=== PATIENT | male | born 1955 | race Caucasian/White ===

== ENCOUNTER 2017-04-17 10:06 | Inpatient (IN) | payer OTHER ==
[2017-04-17] VITALS (8 sets, daily range): BP systolic 101–134; BP diastolic 44–81
[~2017-04-17] VITALS: Ht 175.3 cm; Wt 98.6 kg
[2017-04-17 10:28] LABS: HEMOGLOBIN 16.6 g/dL (14.1-18.0); LYMPH # 0.9 K/mm3 (0.7-4.5); LYMPH % 6.8 % (10-50)
[2017-04-17 10:57] LABS: BUN 28 mg/dL (7-18)
[2017-04-17 11:01] LABS: GFR (ESTIMATED) 41 ML/MIN (>60)
[2017-04-17] MEDS ORDERED: INVOKAMET XR 11 EAC1 PO (11:04)
[2017-04-17] MEDS ORDERED: TOUJEO300 U/ML SC (11:05)
[2017-04-17] MEDS ORDERED: PRAVACHOL40 M1 PO (11:05)
[2017-04-17] MEDS ORDERED: GLIPIZIDE10 MG PO (11:06)
[2017-04-17] MEDS ORDERED: HCTZ/LISINOPRIL1 TA3 PO (11:10)
--- NOTE | 2017-04-17 11:29 | CONSULT NOTE ---
Standard Demographics Patient Demo Date of Consultation: 04/17/17 Referring Provider: Marc Whelan MD Reason for Consultation: STEMI PRIMARY DIAGNOSIS: STEMI Problem list Problem list: STEMI ANGINA PECTORIS HTN HLD DM History of present illness: History of present illness: Pt presented to his PCP's office today thinkng he had pneumonia. He states that when he was couging he had pressure in the center of the chest radiating up to his head. Occurs with cough. Relieves after a few seconds. This is moderate in intensity. Nothing improves symptoms, it resolves on its own. Denies SOB, edema, fever, chills, N/V/D, PND or orthopnea. He states he had been feeling well until these symptoms started a few days ago. Pt denies previous history of CP. No CAD or KS. He states that he is currently free of CP. His PCP sent him to the hospital for an EKG and labs. In outpatient EKG, pt was found to have an inferolateral STEMI on EKG. Pt will be taken directly to the woven label designer for LHC with R radial access. Past Medical History: General: Hypertension Yes CVA No Seizures No TB No COPD No Asthma No Diabetes Yes Angina Yes KS No Hyperlipidemia Yes Urinary No Cancer No Rheumatic H.D. No Ulcers No MRSA No GB Disease No Past Surgical HX: Previous Surgery?Y Allergies Coded Allergies: No Known Allergies (04/17/17) Home medications: Reported Medications Canagliflozin/Metformin HCl (Invokamet XR 150-1,000 MG Tab) 2 TABS PO DAILY INSULIN GLARGINE,HUM.REC.ANLOG (Tojakub Walker) 75 UNITS SC QHS Pravastatin Sodium (Pravachol) 40 MG PO QHS Glipizide 2 TABS PO BID LISINOPRIL/HYDROCHLOROTHIAZIDE (Lisinopril-Hctz 20-12.5 MG Tab) 2 TAB PO DAILY Current Medications: Current Medications Diphenhydramine HCl 50 MG ONCE ONE IV (DC) Fentanyl Citrate 25 MCG Q3MINP PRN IV Fentanyl Citrate 50 MCG Q3MINP PRN IV (UNV) Flumazenil 0.2 MG PRN PRN IV Heparin Sodium (Beef Lung) 5,000 UNITS PRN PRN IV Heparin Sodium/Sodium Chloride 3,000 UNITS PRN PRN IV Lidocaine HCl 20 ML ONCE ONE IJ (DC) Midazolam HCl 1 MG Q3MINP PRN IV Midazolam HCl 1 MG Q3MINP PRN IV Naloxone HCl 0.4 MG [id number] PRN IV Nitroglycerin 800 MCG PRN PRN IV Sodium Chloride 10 ML PRN PRN IV Sodium Chloride 1,000 ML .Q25H IV Ticagrelor 180 MG ONCE ONE PO (DC) Verapamil HCl 5 MG PRN PRN IV Family history Family HX Diabetes Yes CAD No Hypertension Yes Hyperlipidemia Yes TB No Social Hx: Smoking HX Tobacco No Alcohol Alcohol: No Hx of Drug Use Drug Use? No Patien't marital status is (many years) Patient's support system is good Review of systems: Constitutional No: chills, diaphoresis, fever, malaise, weakness, other. Eyes No: blindness, blurred vision, drainage, decreased acuity, foreign body sensation, inflammation, pain, photophobia, previous injury, shadows, tunnel vision, vision change, contact lenses, glasses, other. Ears, Nose, Mouth, Throat No ear pain, No ear discharge, No nose pain, No drooling/excessive saliva, No nose discharge, No nose congestion, No epistaxis, No mouth pain, No mouth swelling, No tongue swelling, No dental caries, No loose teeth, No missing teeth , No throat pain, No throat swelling, No other Respiratory No: cough, orthopnea, shortness of breath, SOB with excertion, SOB at rest, stridor, wheezing, other. Cardiovascular see HPI, chest pain, No edema, No palpitations, No syncope, No other Gastrointestinal/Abdominal No abdomen distended, No abdominal pain, No blood streaked bowels, No constipated, No diarrhea, No difficulty swallowing, No nausea, No poor appetite, No poor fluid intake, No rectal bleeding, No vomiting, No other Genitourinary No: discharge, abnormal vaginal bleeding, normal menstrual period, vaginal discharge, dysuria, frequency, hesitancy, hematuria, dyspareunia, pain, penis pain, pelvic pain, scrotal/testicular pain, hx stds, genital lesions, other, , labia tenderness, penis tenderness, scrotal tenderness. Musculoskeletal No: back pain, gout, joint pain, joint swelling, muscle pain, muscle stiffness, neck pain, other. Skin No: change in color, change in hair/nails, dryness, lesions, lumps, rash, other. Neurological No: headache, numbness, tingling, tremors, weakness, parasthesia, seizure disorder. Psychiatric No: anxious, depressed, other, withdrawn. Exam: Admission Vital Signs: 1ST Vital Signs Result Date Time Resp 04/17 1106 HR 91 BP 131/77 O2 sat 100% Last Vital Signs: Vital Signs Result Date Time Resp 04/17 1106 Exam General appearance: normal appearance, alert, active, awake, face symmetric, no acute distress, well-developed, well-nourished, obese Eyes: normal exam, anicteric, conjunctiva clear, EOM's w/normal ROM, PERRLA, sclera clear ENT: normal exam, mucous membranes moist, nose normal, pharynx normal, teeth/ gums normal, tympanic membranes normal Neck: normal inspection, non-tender, no carotid bruit, no JVD, full range of motion, range of motion, supple Cardiovascular: normal exam, no JVD, no ectopics, normal sinus rhythm, PMI normal, regular rate & rhythm, no murmur, normal peripheral pulses, no peripheral edema, no rub Respiratory: normal exam, aerating well, clear to auscultation, chest non- tender, good air movement, normal breath sounds, no respiratory distress, trachea midline ABD: normal exam, non-distended, normal bowel sounds, no rebound, soft, no tenderness, no guarding, no organomegaly, no palpable mass Extremities: normal exam, full range of motion, moves all, normal capillary refill, no peripheral edema, femoral pulses (present), warm, pedal pulses ( present), no calf tenderness, no pedal edema Musculoskeletal: normal exam, equal muscle strength, motor intact, normal gait, sensation intact Skin: normal exam, dry, intact, normal color, no gross abnormalities, warm Neuro: normal exam, alert, sales representative electric service II-XII nml as tested, intact, no deficit, normal mood/affect, oriented, speech clear Laboratory data: Laboratory Tests 04/17/17 1006: Sodium 135 L, Potassium 4.8, Chloride 97 L, Carbon Dioxide 24, BUN 28 H, Creatinine 1.7 H, Estimated GFR (MDRD) 41, Glucose 403 H, Calcium 9.3, Total Bilirubin 0.8, AST 47 H, ALT 49, Alkaline Phosphatase 68, Creatine Kinase 332 H, CK-MB (CK-2) Rel Index 7.3 H, CK and CKMB Interp 24.1 *H, Troponin I 20.07 H, Total Protein 7.9, Albumin 3.6, Globulin 4.3 H, Albumin/Globulin Ratio 0.8 L, D-Dimer 560 *H, WBC 13.5 H, RBC 5.46, Hgb 16.6, Hct 52.1 H, MCV 95.5, RDW 12.9, Plt Count 246, MPV 9.2, Gran % 84.5 H, Gran # 11.4 H, Lymphocytes % 6.8 L, Monocytes % 7.7, Eosinophils % 0.7, Basophils % 0.3, Lymphocytes # 0.9, Monocytes # 1.1 H, Eosinophils # 0.1, Basophils # 0.0, PUBS MCHC 31.8, MCH 30.4 Additional information: EKG shows inferolateral STEMI with reciporical changes. Plan Assessment: STEMI ANGINA PECTORIS HTN HLD DM MARCIO STEMI SCORE MARCIO STEMI SCORE Response Value Age of patient Less than 65 yrs 0 Hx of anginal chest pain Present 1 Hx of hypertension Present 1 Hx of diabetes Present 1 Systolic Blood Pressure 100 mg Hg or more 0 Heart Rate Less than 100 beats/min 0 Killip Class I-No heart failure 0 Patient weight 67 kg or more 1 Anterior KS No 0 Left Bundle Branch Block Absent 0 Treatment delay after attack 4 hrs or more 1 Total 5 Plan: 1. Pt admitted with STEMI from outpatient EKG. He has been having angina the past few days. CP with coughing and radiating up to his head. Occurs with cough and resolves quickly. moderate in intensity. Pt will be taken directly to the woven label designer for LHC with R radial access. Will get a stat troponin. 2. pt educated on the risks an benefits of LHC with R radial access. Pt verbalizes understanding and gives verbal consent. 3. NPO 4. BP is well controlled. 5. LDL is goal < 55. 6. Pt has diabetes. appears poorly controlled with glucose over 400. pt needs aggressive control. will defer to Dr. Driscoll. 7. Will get an echocardiogram to evaluate LV function. 8. Further recommendations pending the patients response to treatment and the results of his LHC and echocardiogram today. Thank you for the opportunity to help participate in the care of this patient. at [id number]
--- OUTSIDE RECORDS SUMMARY | 2017-04-17 11:34 | External Medical Summary Rpt | CCD ---
Author Author [employer] Organization [employer] Address Unknown Phone Unavailable Purpose Continuity of Care Document - through 2016
--- OUTSIDE RECORDS SUMMARY | 2017-04-17 11:34 | External Medical Summary Rpt | CCD ---
Author Author , ARVIND SAMUELS Address Unknown Phone [email or web address] Purpose Continuity of Care Document - 04-17-2017 through 2016
--- OUTSIDE RECORDS SUMMARY | 2017-04-17 11:34 | External Medical Summary Rpt ---
Author Author BONNYDINESH Brunson, ARVIND [employer] Organization [employer] Address Unknown Phone Unavailable Results Cardiac enzymes Observa Value Referen Units Interpr Notes Date tion ce etation Range Creatine 0 - 4.0 U/L High No Apr 17 kinase.MB informati 2017 /Creatine on in 10:06 AM source kinase.to data david [Ratio] in Serum or Plasma Creatine 0.0 - 3.6 ng/mL High Apr 17 kinase.MB alert 2017 CRITICAL 10:06 AM [Mass/vol RESULTS ume] in Serum or RESU Plasma LTS CALLED TO: 04/17/17 [facility] Tremayne Pena OFFICE SPOKE WITH TOYIN F Creatine 39 - 308 U/L High No Apr 17 kinase informati 2016 [Enzymati on in 10:06 AM c source activity/ data volume] in Serum or Plasma Troponin 0.00 - ng/mL High Apr 17 I.cardiac 0.06 2017 CRITICAL 10:06 AM [Mass/vol RESULTS ume] in Serum or RESU Plasma LTS CALLED TO: 04/17/17 [facility] Tremayne Pena OFFICE SPOKE WITH TOYIN F> 0.5 IS CONSISTEN T WITH MYOCARDIA L ISCHEMIA OR INFARCTIO N Comprehensive metabolic 2000 panel in Serum or Plasma Observa Value Referen Units Interpr Notes Date tion ce etation Range Albumin/G 1.1 - 1.8 No Low No Apr 17 lobulin informati informati 2016 [Mass on in on in 10:06 AM ratio] in source source Serum or data data Plasma Albumin 3.4 - 5.0 gm/dL Normal No Apr 17 [Mass/vol informati 2017 ume] in on in 10:06 AM Serum or source Plasma data Alkaline 46 - 116 U/L Normal No Apr 17 phosphata informati 2017 se on in 10:06 AM [Enzymati source c data activity/ volume] in Serum or Plasma Bilirubin 0.2 - 1.0 mg/dL Normal No Apr 17 .total informati 2016 [Mass/vol on in 10:06 AM ume] in source Serum or data Plasma Urea 7 - 18 mg/dL High No Apr 17 nitrogen informati 2017 [Mass/vol on in 10:06 AM ume] in source Serum or data Plasma Calcium 8.5 - mg/dL Normal No Apr 17 [Mass/vol 10.1 informati 2016 ume] in on in 10:06 AM Serum or source Plasma data Chloride 98 - 107 mmoL/L Low No Apr 17 [Moles/vo informati 2016 lume] in on in 10:06 AM Serum or source Plasma data Carbon 21.0 - mmoL/L Normal No Apr 17 dioxide, 32.0 informati 2017 total on in 10:06 AM [Moles/vo source lume] in data Serum or Plasma Creatinin 0.70 - mg/dL High No Apr 17 e 1.30 informati 2016 [Mass/vol on in 10:06 AM ume] in source Serum or data Plasma Estimated >60 ML/MIN No REFERENCE Apr 17 informati RANGE: 2017 glomerula on in >60 10:06 AM r source ML/MIN/1. filtratio data 73 SQUARE n rate METERSIf (GF this patient is -A merican, then multiply theresult by 1.210. Globulin 1.3 - 3.2 gm/dL High No Apr 17 [Mass/vol informati 2016 ume] in on in 10:06 AM Serum source data Glucose 74 - 106 mg/dL High Apr 17 [Mass/vol 2016 ume] in CRITICAL 10:06 AM Serum or RESULTS Plasma RESU LTS CALLED TO: 04/17/[address] OFFICE SPOKE WITH TOYIN Singh Potassium 3.5 - 5.1 mmoL/L Normal No Apr 17 informati 2016 [Moles/vo on in 10:06 AM lume] in source Serum or data Plasma Sodium 136 - 145 mmoL/L Low No Apr 17 [Moles/vo informati 2016 lume] in on in 10:06 AM Serum or source Plasma data Aspartate 15 - 37 U/L High No Apr 172016 aminotran on in 10:06 AM sferase source [Enzymati data c activity/ volume] in Serum or Plasma Alanine 12 - 78 U/L Normal No Apr 17 aminotran inform2016 sferase on in 10:06 AM [Enzymati source c data activity/ volume] in Serum or Plasma Protein 6.4 - 8.2 gm/dL Normal No Apr 17 [Mass/vol informati 2017 ume] in on in 10:06 AM Serum or source Plasma data Fibrin D-dimer FEU [Mass/volume] in Platelet poor plasma Observa Value Referen Units Interpr Notes Date tion ce etation Range Fibrin 0 - 400 ng/mL High Apr 17 D-dimer alert NOTIFICAT 2017 FEU ION 10:06 AM [Mass/vol RESULT ume] in The Platelet D-Dimer poor values plasma are presented in units of mass(ng/m L) ofD-Dimer units(DDU ).This test has been FDA approved as an aid in the assessmen tand evaluatio n of suspected DIC, and thromboem bolic eventsinc luding PE and DVT. However, it does not have approvalf or cut-off values for the exclusion of these condition s. CBC W Auto Differential panel in Blood Observa Value Referen Units Interpr Notes Date ti ce etation Range Basophils 0 - 0.2 K/MM3 Normal No Apr 172016 [#/volume on in 10:06 AM ] in source Blood by data Automated count Basophils 0.1 - 2.0 % Normal No Apr 172016 leukocyte on in 10:06 AM s in source Blood by data Automated count Eosinophi 0.0 - 0.4 K/mm3 Normal No Apr 17 ls 2016 [#/volume on in 10:06 AM ] in source Blood by data Automated count Eosinophi 0.1 - % Normal Apr 17 ls/100 12.0 2016 leukocyte on in 10:06 AM s in source Blood by data Automated count Granulocy 1.3 - 8.0 K/mm3 High No Apr 17 sunny 2016 [#/volume on in 10:06 AM ] in source Blood by data Automated count Granulocy 37.0 - % High No Apr 17 snuny/100 80.0 2016 leukocyte on in 10:06 AM s in source Blood by data Automated count Hematocri 42.0 - % High Apr 17 t [Volume 52.0 ati 2016 on in 10:06 AM Fraction] source of Blood data Hemoglobi 14.1 - g/dL Normal Apr 17 n 18.0 inform2016 [Mass/vol on in 10:06 AM ume] in source Blood data Lymphocyt 0.7 - 4.5 K/mm3 Normal No Apr 17 es 2016 [#/volume on in 10:06 AM ] in source Unspecifi data ed specimen by Automated count Lymphocyt 10 - 50 % Low No Apr 17 es 2016 [#/volume on in 10:06 AM ] in source Unspecifi data ed specimen by Automated count Erythrocy 27 - 31.2 pg Normal Apr 17 te mean 2016 corpuscul on in 10:06 AM ar source hemoglobi data n [Entitic mass] Erythrocy 31.8 - g/dl Normal Apr 17 te mean 35.4 2016 corpuscul on in 10:06 AM ar source hemoglobi data n concentra tion [Mass/vol ume] by Automated count Erythrocy 82.2 - fl Normal Apr 17 te mean 97.8 2016 corpuscul on in 10:06 AM ar volume source [Entitic data volume] by Automated count Monocytes 0.1 - 1.0 K/mm3 High Apr 172016 [#/volume on in 10:06 AM ] in source Blood by data Automated count Monocytes 1.7 - 9.3 % Normal No Apr 17 /100 2016 leukocyte on in 10:06 AM s in source Blood by data Automated count Platelet 7.4 - fl Normal Apr 17 mean 10.4 2016 volume on in 10:06 AM [Entitic source volume] data in Blood by Automated count Platelets 142 - 424 K/mm3 Normal Apr 172016 [#/volume on in 10:06 AM ] in source Blood data Erythrocy 4.6 - 6.2 M/mm3 Normal No Apr 17 sunny 2016 [#/volume on in 10:06 AM ] in source Amniotic data fluid Erythrocy 11.5 - % Normal Apr 17 te 17.5 2016 distribut on in 10:06 AM ion width source [Entitic data volume] by Automated count Leukocyte 4.8 - K/MM3 High No Mar 21 s 10.8 informati 2017 [#/volume on in 10:06 AM ] in source Blood data
--- OUTSIDE RECORDS SUMMARY | 2017-04-17 11:34 | External Medical Summary Rpt ---
Author Author BONNYDINESH Brunson, ARVIND [employer] Organization [employer] Address Unknown Phone Unavailable [...] or RESU Plasma LTS CALLED TO: 04/17/[address] [facility] Tremayne Pena OFFICE SPOKE WITH TOYIN F Creatine 39 - 308 U/L High No Apr 17 kinase informati 2016 [Enzymati on in 10:06 AM c source activity/ data volume] in Serum or Plasma Troponin 0.00 - ng/mL High Apr 17 I.cardiac 0.06 2017 CRITICAL 10:06 AM [Mass/vol RESULTS ume] in Serum or RESU Plasma LTS CALLED TO: 04/17/[address] [facility] Tremayne Pena OFFICE SPOKE WITH TOYIN F> [...] 37.0 - % High No Apr 17 sunny/100 80.0 2016 leukocyte on in 10:06 AM [...]
--- OUTSIDE RECORDS SUMMARY | 2017-04-17 11:34 | External Medical Summary Rpt | CCD ---
Demographics Preferred Language Liberian Marital Status Unknown Taoist Affiliation Unknown Race Unknown Ethnic Group Unknown Author Author , ARVIND SAMUELS Address Unknown Phone Immunization No patient found.
--- OUTSIDE RECORDS SUMMARY | 2017-04-17 11:34 | External Medical Summary Rpt | CCD ---
Demographics Preferred Language Cambodian Marital Status Unknown Hoahaoism Affiliation Unknown Race Unknown Ethnic Group Unknown Author Author , ARVIND SAMUELS Address Unknown Phone Immunization No patient found.
--- OUTSIDE RECORDS SUMMARY | 2017-04-17 11:34 | External Medical Summary Rpt | CCD ---
Author Author , ARVIND SAMUELS Address Unknown Phone [email or web address] Purpose Continuity of Care Document - 04-17-2017 through 2016
--- NOTE | 2017-04-17 15:54 | HISTORY AND PHYSICAL REPORT ---
History and Physical ([facility]) Date of admission: 04/17/17 Chief complaint: chest pain History: History of Present Illness: Mr Ye is a 61 year old male with a history of Type 2 DM, hyperlipidemia, and HTN who presented to the office of [facility] today thinkng he had the flu, a cold or pneumonia. He stated that when he was couging he had pressure in the center of the chest radiating up to his head which occured with cough and was relieved after a few seconds. This was moderate in intensity. Nothing improved symptoms and it resolved on its own. He denied SOB, edema, fever, chills, N/V/D, PND or orthopnea. He stated he had been feeling well until these symptoms started a few days ago. Pt denied previous history of CP; No CAD or ME. He was free of CP. Dr. Whelan assessed him in the office and sent him to the hospital for an EKG and labs. Outpatient EKG revealed an inferolateral STEMI . Pt was taken directly to the cardiac cath lab radiology technologist for LHC with R radial access and had stents placed. At the time of this exam patient is back in his room after stent placement. Report not available as yet. He is comfortable and denies SOB. Family is at bedside. Past Medical History: Medical History: CAD? Yes Angina: Yes ME: Yes Hypertension? Yes Hyperlipidemia? Yes CHF? No COPD? No Asthma? No Hernia? No CVA? No Seizures? No Diabetes? Yes UTI? No Stones? Yes BPH? No GB Disease: No Hepatitis? No Cataracts? No Glaucoma? No MRSA? No TB? No Cancer? No Additional hx: hyperlipidemia Surgical history: Previous Surgery? Right knee surgery at 2004 Medications: Reported Medications Canagliflozin/Metformin HCl (Invokamet XR 150-1,000 MG Tab) 2 TABS PO DAILY INSULIN GLARGINE,HUM.REC.ANLOG (Toujeo Solostar) 75 UNITS SC QHS Pravastatin Sodium (Pravachol) 40 MG PO QHS Glipizide 2 TABS PO BID LISINOPRIL/HYDROCHLOROTHIAZIDE (Lisinopril-Hctz 20-12.5 MG Tab) 2 TAB PO DAILY Allergies: Coded Allergies: No Known Allergies (04/17/17) Family History: Family history: Postive for: DM, HTN, cancer. Negative for: CAD. Social History: Smoking Hx Tobacco: No Smoker: Never Smoker Type: N/A Packs/day: N/A Are you exposed to second hand No Alcohol: Alcohol: No Hx of Drug Use: Drug Use? No Patient's support system is: good Review of Systems: ENT No: sore throat. Cardiovascular Positive for: chest pain. No: edema, palpitations. Respiratory Positive for: non-productive. No: shortness of air. GI No: GERD, abdominal pain, constipation, diarrhea, hematemeis, hematochezia, nausea, vomitting. (male) No: hematuria. Neurological No: dizziness, headache, seizure, syncope. Musculoskeletal No: extremity pain, joint pain. Physical Exam: Vital signs: Vital Signs Date Time Temp Pulse Resp B/P Pulse O2 O2 Flow FiO2 Ox Delivery Rate 04/17 1451 80 18 04/17 1450 98.1 80 18 95 ROOM AIR 04/17 1448 97.6 81 22 101/44 98 ROOM AIR 04/17 1342 81 18 99/67 95 ROOM AIR 04/17 1342 84 18 97/72 94 ROOM AIR 04/17 1341 86 18 92/66 95 ROOM AIR 04/17 1341 93 18 90/68 95 ROOM AIR 04/17 1340 90 18 89/46 97 ROOM AIR 04/17 1339 94 18 97 ROOM AIR 04/17 1338 98.1 94 18 96/70 94 ROOM AIR 04/17 1334 98.1 94 18 96/70 94 04/17 1224 18 04/17 1219 18 04/17 1203 18 04/17 1122 18 04/17 1106 18 1ST Vital Signs Result Date Time Resp 18 04/17 1106 Pulse Ox 94 04/17 1334 B/P 96/70 04/17 1334 Temp 98.1 04/17 1334 Pulse 94 04/17 1334 O2 Delivery ROOM AIR 04/17 1338 Exam: General appearance: alert, active, no acute distress Eyes: anicteric Neck: no carotid bruit, supple, lymphadenopathy (absent), thyroid (normal) Cardiovascular: regular rate & rhythm Respiratory: clear to auscultation (bilat anterior and posterior) ABD: soft, no tenderness, no guarding, bowel sounds present Extremities: full range of motion, no peripheral edema, no calf tenderness Neuro: alert, oriented, speech clear Lab data: Labs: Laboratory Tests 04/17/17 1429: POC Glucose 391 *H 04/17/17 1330: POC Activ Clotting Time 327 *H 04/17/17 1254: POC Activ Clotting Time >400 *H 04/17/17 1006: Sodium 135 L, Potassium 4.8, Chloride 97 L, Carbon Dioxide 24, BUN 28 H, Creatinine 1.7 H, Estimated GFR (MDRD) 41, Glucose 403 H, Calcium 9.3, Total Bilirubin 0.8, AST 47 H, ALT 49, Alkaline Phosphatase 68, Creatine Kinase 332 H, CK-MB (CK-2) Rel Index 7.3 H, CK and CKMB Interp 24.1 *H, Troponin I 20.07 H, Total Protein 7.9, Albumin 3.6, Globulin 4.3 H, Albumin/Globulin Ratio 0.8 L, D-Dimer 560 *H, WBC 13.5 H, RBC 5.46, Hgb 16.6, Hct 52.1 H, MCV 95.5, RDW 12.9, Plt Count 246, MPV 9.2, Gran % 84.5 H, Gran # 11.4 H, Lymphocytes % 6.8 L, Monocytes % 7.7, Eosinophils % 0.7, Basophils % 0.3, Lymphocytes # 0.9, Monocytes # 1.1 H, Eosinophils # 0.1, Basophils # 0.0, PUBS MCHC 31.8, MCH 30.4 Radiology results: Results: pending Diagnosis(es): 1. STEMI (ST elevation myocardial infarction) 2. Type 2 diabetes mellitus 3. HYPERLIPIDEMIA, UNSPECIFIED 4. HTN (hypertension) Plan: as per cardiology; see orders (Candace De Souza APRN) Diagnosis(es): 1. STEMI (ST elevation myocardial infarction) 2. Type 2 diabetes mellitus 3. HYPERLIPIDEMIA, UNSPECIFIED 4. HTN (hypertension) Plan: Patient seen and agree with above note. (Marc Whelan MD) at 1619 at 1810
--- NOTE | 2017-04-17 22:37 | RADIOLOGY REPORT PS360 ---
PROCEDURE: 2-D M-mode and color Doppler study INDICATIONS FOR THE TEST: Chest pain X COPD Heart Murmur Tobacco Smoking Palpitations Fatigue Syncope Edema HypertensionXDiabetes MellitusX Rheumatic Fever SOBXDOE ObesityXHyperlipidemia Family History HD Additional History STEMI PATIENT INFORMATION HEIGHT: 69 WEIGHT:217 GENDER: Male B/P: 2-D/M-MODE INTERPRETATION: 2-D MEASUREMENTS OBSERVED VALUES IN CMS Right Ventricular Dimension (RVDd) 1.3 Interventricular Septum (Thickness)(IVsd) 1.7 Left Ventricular Internal Dimensions(LVIDd) 3.5 Left Ventricular Posterior Wall (Thickness)(LVPWd) 1.8 Aortic Root 2.9 Aortic Cusp Separation 2.2 Left Atrial Dimensions (LAD) 3.2 2D 1. Technically difficult study because of the patient's factor and poor acoustic windows 2. The left atrium is mildly enlarged, left ventricle is normal size, there is mild concentric left ventricular hypertrophy, there is severely reduced left ventricular systolic function, visually estimated ejection fraction 30%, there is marked hypo to akinesis involving the inferolateral, lateral and anterolateral wall. 3. The right atrium and right ventricle are normal size and contractility. 4. The aortic valve is minimally thickened and fibrosed. 5. The mitral and tricuspid valve leaflets are minimally thickened. 6. There is localized [id number] size left-sided pericardial effusion noted. DOPPLER INTERROGATION: Doppler interrogation of the aortic, mitral and tricuspid valvular presence of mild mitral and tricuspid regurgitation, diastolic parameters are inconclusive. Tricuspid regurgitant jet velocity is insufficient for calculation of the right ventricular systolic pressure. CONCLUSION: 1. Mildly enlarged left atrium, normal left ventricular size, mild concentric left ventricular hypertrophy, visually estimated ejection fraction 30% with multiple segmental wall motion abnormality described above. Diastolic parameters are inconclusive. 2. Mild mitral and tricuspid regurgitation. 3. Localized pericardial effusion is present as described above.
[2017-04-18] VITALS (16 sets, daily range): BP systolic 99–128; BP diastolic 60–87
[2017-04-18 05:39] LABS: LYMPH # 1.5 K/mm3 (0.7-4.5); LYMPH % 10.8 % (10-50)
[2017-04-18 05:42] LABS: HEMOGLOBIN 13.5 g/dL (14.1-18.0)
[2017-04-18 05:51] LABS: BILIRUBIN, INDIRECT 0.41 mg/dL (0-0.9)
--- NOTE | 2017-04-18 07:18 | PHARMACY CLINIC NOTE ---
Patient Demographics Patient Demographics Admission date: 04/17/17 Date: 04/18/17 Time: 0717 Allergies Coded Allergies: No Known Allergies (04/17/17) HEIGHT- FT: 5 IN: 9.00 K.754 VTE General Information Labs: Laboratory Tests 04/18 04/17 0525 1006 Hematology Hgb (14.1 - 18.0 g/dL) 13.5 L 16.6 Hct (42.0 - 52.0 %) 41.7 L 52.1 H Plt Count (142 - 424 K/mm3) 223 246 Disclaimer The following section includes nursing documentation that has been pulled in for pharmacy review. Patient's VTE score: 3 Patient's VTE Risk: LOW RISK Clinical trial participant? No VTE prophylaxis [id number] VTE prophylaxis ordered? Yes Type of prophylaxis/treatment: CHANELLE at 0717
--- NOTE | 2017-04-18 08:08 | ACUTE CARE PROGRESS NOTE (QUA) ---
Progress Notes Subjective Date 04/18/17 Time 0755 Note no further CP or SOB; did not sleep; blood was drawn q2h making sleep difficult; voiding; eating without problems; has a headache; still on Nitro gtt Had cardiac cath yesterday; report not available as yet but had several stents placed; needs additional stents allowing renal function rest. Objective Findings Laboratory Tests 04/18/17 0609: POC Glucose 187 H 04/18/17 0525: Sodium 134 L, Potassium 4.4, Chloride 101, Carbon Dioxide 26, BUN 34 H, Creatinine 1.3, Estimated Creat Clear 82, Estimated GFR (MDRD) 56, Glucose 174 H, Calcium 8.7, Total Bilirubin 0.6, Direct Bilirubin 0.19, Indirect Bilirubin 0.41, AST 71 H, ALT 41, Alkaline Phosphatase 53, Total Protein 6.6, Albumin 2.8 L, Triglycerides 59, Cholesterol 140, LDL Cholesterol 84.2, VLDL Cholesterol 11.8, HDL Cholesterol 44.0, WBC 13.5 H, RBC 4.51 L, Hgb 13.5 L, Hct 41.7 L, MCV 92.5, RDW 13.0, Plt Count 223, MPV 9.4, Gran % 79.3, Gran # 10.7 H, Lymphocytes % 10.8, Monocytes % 9.2, Eosinophils % 0.4, Basophils % 0.2, Lymphocytes # 1.5, Monocytes # 1.2 H, Eosinophils # 0.1, Basophils # 0.0, PUBS MCHC 32.2, MCH 29.8 04/17/17 2150: Creatine Kinase 462 H, CK-MB (CK-2) Rel Index 8.8 *H, CK and CKMB Interp 40.8 * H, Troponin I 25.02 H 04/17/17 1958: POC Glucose 369 *H 04/17/17 1922: Creatine Kinase 414 H, CK-MB (CK-2) Rel Index 10.6 *H, CK and CKMB Interp 43.7 *H, Troponin I 21.30 H 04/17/17 1429: POC Glucose 391 *H 04/17/17 1330: POC Activ Clotting Time 327 *H 04/17/17 1254: POC Activ Clotting Time >400 *H 04/17/17 1006: Sodium 135 L, Potassium 4.8, Chloride 97 L, Carbon Dioxide 24, BUN 28 H, Creatinine 1.7 H, Estimated GFR (MDRD) 41, Glucose 403 H, Calcium 9.3, Total Bilirubin 0.8, AST 47 H, ALT 49, Alkaline Phosphatase 68, Creatine Kinase 332 H, CK-MB (CK-2) Rel Index 7.3 H, CK and CKMB Interp 24.1 *H, Troponin I 20.07 H, Total Protein 7.9, Albumin 3.6, Globulin 4.3 H, Albumin/Globulin Ratio 0.8 L, D-Dimer 560 *H, WBC 13.5 H, RBC 5.46, Hgb 16.6, Hct 52.1 H, MCV 95.5, RDW 12.9, Plt Count 246, MPV 9.2, Gran % 84.5 H, Gran # 11.4 H, Lymphocytes % 6.8 L, Monocytes % 7.7, Eosinophils % 0.7, Basophils % 0.3, Lymphocytes # 0.9, Monocytes # 1.1 H, Eosinophils # 0.1, Basophils # 0.0, PUBS MCHC 31.8, MCH 30.4 Vital Signs Date Time Temp Pulse Resp B/P Pulse O2 O2 Flow FiO2 Ox Delivery Rate 04/18 0600 81 117/77 93 ROOM AIR 04/18 0359 97.9 89 18 104/65 92 04/18 0200 89 99/78 92 ROOM AIR 04/18 0000 91 101/65 93 ROOM AIR 04/17 2200 94 103/71 94 ROOM AIR 04/17 2000 97.5 100 18 116/76 94 04/17 1750 99 18 134/81 96 04/17 1650 90 18 110/77 94 04/17 1550 97.1 91 18 104/77 95 04/17 1520 85 18 109/79 97 04/17 1451 80 18 91/67 04/17 1450 98.1 86 18 101/44 97 04/17 1450 98.1 80 18 91/67 95 ROOM AIR 04/17 1448 97.6 81 22 101/44 98 ROOM AIR 04/17 1342 81 18 99/67 95 ROOM AIR 04/17 1342 84 18 97/72 94 ROOM AIR 04/17 1341 86 18 92/66 95 ROOM AIR 04/17 1341 93 18 90/68 95 ROOM AIR 04/17 1340 90 18 89/46 97 ROOM AIR 04/17 1339 94 18 97 ROOM AIR 04/17 1338 98.1 94 18 96/70 94 ROOM AIR 04/17 1334 98.1 94 18 96/70 94 04/17 1224 18 04/17 1219 18 04/17 1203 18 04/17 1122 18 04/17 1106 18 Current Medications Aspirin 81 MG DAILY PO Ticagrelor 90 MG BID PO Insulin Human [rDNA origin] 0 .STK-MED ONE SC (DC) Acetaminophen 0 .STK-MED ONE PO (DC) Atorvastatin Calcium 80 MG QHS PO Insulin Glargine 60 UNITS QHS SC Acetaminophen 0 .STK-MED ONE PO (DC) Hydrocodone Bitart/Acetaminophen 0 .STK-MED ONE PO (DC) Temazepam 0 .STK-MED ONE PO (DC) Insulin Human [rDNA origin] 0 .STK-MED ONE SC (DC) Sodium Chloride 1,000 ML .[id number] IV Diagnostic Test (Pha) 1 EACH W/MEALS&HS FS Insulin Human [rDNA origin] SEE ADMIN CRITERIA W/MEALS&HS SC Iopamidol 150 ML ONCE ONE IV (DC) Iopamidol 50 ML ONCE ONE IV (DC) Acetaminophen 650 MG Q4HP PRN PO Influenza Virus Vaccine Quadrival 0.5 ML PRN PRN IM Nicotine 21 MG DAILYP PRN TD Ondansetron HCl 4 MG Q6HP PRN IV Sodium Chloride 10 ML PRN PRN IV Diphenhydramine HCl 50 MG ONCE ONE IV (DC) Fentanyl Citrate 25 MCG Q3MINP PRN IV (DC) Fentanyl Citrate 50 MCG Q3MINP PRN IV (DC) Flumazenil 0.2 MG PRN PRN IV (DC) Heparin Sodium (Beef Lung) 5,000 UNITS PRN PRN IV Heparin Sodium/Sodium Chloride 3,000 UNITS PRN PRN IV Lidocaine HCl 20 ML ONCE ONE IJ (DC) Midazolam HCl 1 MG Q3MINP PRN IV (DC) Midazolam HCl 1 MG Q3MINP PRN IV (DC) Naloxone HCl 0.4 MG [id number] PRN IV (DC) Nitroglycerin 800 MCG PRN PRN IV Sodium Chloride 10 ML PRN PRN IV (DC) Sodium Chloride 1,000 ML .Q25H IV (DC) Ticagrelor 180 MG ONCE ONE PO (DC) Verapamil HCl 5 MG PRN PRN IV 04/17 1500 04/17 2300 04/18 0700 Intake Total 1500 240 730 Output Total Balance 1500 240 730 Intake, IV 1500 730 Intake, Oral 240 Patient 220 lb 222 lb Weight Last VS-Temp:97.9 B/P:117/77 Pulse:81 Resp:18 SaO2:93 ROOM AIR Last weight lbs:222 oz:2 K.754 Method:Bed Scales ECHO 04/17/17 CONCLUSION: 1. Mildly enlarged left atrium, normal left ventricular size, mild concentric left ventricular hypertrophy, visually estimated ejection fraction 30% with multiple segmental wall motion abnormality described above. Diastolic parameters are inconclusive. 2. Mild mitral and tricuspid regurgitation. 3. Localized pericardial effusion is present as described above. Exam General appearance: alert, no acute distress Cardiovascular: regular rate & rhythm Respiratory: clear to auscultation (bilat anterior and posterior) ABD: soft, no tenderness, bowel sounds present Extremities: no peripheral edema, no calf tenderness Neuro: alert, oriented Assessment/Plan Problem List 1. STEMI (ST elevation myocardial infarction) 2. Type 2 diabetes mellitus 3. HYPERLIPIDEMIA, UNSPECIFIED 4. HTN (hypertension) Patient condition Stable Plan: continue current care, cardiology will stop nitro gtt This inpt stay is expected to cross 2 MNs from start of care Yes (Candace De Souza APRN) Assessment/Plan Problem List 1. STEMI (ST elevation myocardial infarction) 2. Type 2 diabetes mellitus 3. HYPERLIPIDEMIA, UNSPECIFIED 4. HTN (hypertension) Comments: Patient seen and agree with above note. (Marc Whelan MD) at 0807 at 0815
--- NOTE | 2017-04-18 08:14 | ACUTE CARE PROGRESS NOTE (QUA) ---
See Addendum Progress Notes Subjective Date 04/18/17 Time 0805 Note 61 yo WM in bed in NAD. Headache likely due to the NTG gtt. No complaints of chest pain, pressure or tightness. Able to breath easier today. Objective Findings Last VS-Temp:97.9 B/P:117/77 Pulse:81 Resp:18 SaO2:93 ROOM AIR Last weight lbs:222 oz:2 K.754 Method:Bed Scales Exam General appearance: alert, awake, no acute distress Cardiovascular: normal sinus rhythm, regular rate & rhythm Respiratory: clear to auscultation, good air movement Extremities: moves all, no peripheral edema Neuro: alert, intact, oriented Reviewed: medications, vital signs, lab results Assessment/Plan Problem List 1. STEMI (ST elevation myocardial infarction) Assessment/Plan: On DAPT and clinically stable. Will discontinue NTG gtt. Ambulate today. Check Cr tomorrow and if stable then consider discharge for return as outpt for further coronary stenting. 2. Type 2 diabetes mellitus 3. HYPERLIPIDEMIA, UNSPECIFIED Assessment/Plan: On statin. 4. HTN (hypertension) Assessment/Plan: Controlled currently off meds except IV NTG. Will stop NTG gtt and follow BP. Patient condition Stable Plan: As above. This inpt stay is expected to cross 2 MNs from start of care Yes at 0813
[2017-04-19] VITALS (7 sets, daily range): BP systolic 100–117; BP diastolic 58–74
--- NOTE | 2017-04-19 09:27 | ACUTE CARE PROGRESS NOTE (QUA) ---
Progress Notes Subjective Date 04/19/17 Time 0924 Note Patient doing well this morning, no new complaints. He has been fitted with a Life vest and he wants to go home. Objective Findings Laboratory Tests 04/19/17 0607: POC Glucose 123 H 04/18/17 2108: POC Glucose 161 H 04/18/17 1709: POC Glucose 145 H 04/18/17 1116: POC Glucose 155 H Vital Signs Date Time Temp Pulse Resp B/P Pulse O2 O2 Flow FiO2 Ox Delivery Rate 04/19 0815 98.2 66 18 105/61 95 04/19 0800 98.2 66 18 105/61 95 ROOM AIR 04/19 0500 67 18 117/69 93 ROOM AIR 04/19 0405 98.1 71 20 113/74 95 04/19 0300 71 20 113/74 95 ROOM AIR 04/19 0100 81 20 100/58 97 ROOM AIR 04/18 2333 74 18 107/76 92 ROOM AIR 04/18 2100 72 20 118/78 94 ROOM AIR 04/18 2000 98.1 75 18 102/60 96 04/18 1900 98.1 77 18 118/66 95 ROOM AIR 04/18 1743 97.9 98 18 128/77 96 04/18 1700 98 18 128/77 96 ROOM AIR 04/18 1500 86 18 127/87 95 ROOM AIR 04/18 1300 88 20 125/79 92 ROOM AIR 04/18 1200 97.9 86 18 127/87 95 04/18 1100 81 20 118/79 96 ROOM AIR I&O Past 24 Hrs-ending at 0700 04/19 0700 Intake Total 480 Output Total Balance 480 Last VS-Temp:98.2 B/P:105/61 Pulse:66 Resp:18 SaO2:95 ROOM AIR Last weight lbs:217 oz:7 K.628 Method:Bed Scales Exam General appearance: alert, awake, no acute distress Cardiovascular: regular rate & rhythm Respiratory: clear to auscultation Extremities: no peripheral edema Assessment/Plan Problem List 1. STEMI (ST elevation myocardial infarction) 2. CHF (congestive heart failure) 3. Type 2 diabetes mellitus 4. HYPERLIPIDEMIA, UNSPECIFIED 5. HTN (hypertension) This inpt stay is expected to cross 2 MNs from start of care Yes Comments: OK for discharge today, will f/u as an outpatient in a few days for repeat left heart cath and further stent placement. Patient instructed in Life vest use. F /U in my office in 2 weeks. at 3706
[2017-04-19] MEDS ORDERED: LISINOPRIL5 MG PO (09:31)
[2017-04-19] MEDS ORDERED: COREG3.125 MG PO (09:31)
[2017-04-19] MEDS ORDERED: LIPITOR80 MG PO (09:32)
[2017-04-19] MEDS ORDERED: ASPIRIN ADULT L81 M3 PO (09:35)
[2017-04-19] MEDS ORDERED: BRILINTA90 M1 PO (09:35)
--- NOTE | 2017-04-23 11:09 | RADIOLOGY REPORT PS360 ---
CARDIAC CATHETERIZATION DATE OF CATHETERIZATION:04/17/2017 10:51 AM PROCEDURES: 1. Left heart catheterization 2. Left ventriculogram 3. Selective coronary angiogram 4. Drug-eluting stent deployment to the circumflex artery 5. Drug-eluting stent deployment to the proximal mid distal left anterior descending artery 6. Attempted angioplasty to the first diagonal artery 7. Right femoral arterial access 8. Right radial arterial access INDICATION FOR TEST: 1. Acute ST elevation myocardial infarction 2. Coronary artery disease Informed consent was obtained prior to the procedure. COMPLICATIONS: None ESTIMATED BLOOD LOSS: Less than 10 ml. TECHNIQUE: One percent lidocaine used to anesthetize the right anterior aspect of the wrist. The right radial artery was accessed via the Seldinger technique. A 6 German sheath was placed in the right radial artery. 2.5 mg of verapamil, 800 mcg of nitroglycerin and 5000 U Heparin were given through the arterial sheath. An [employer] left catheter was used to perform left heart catheterization left ventriculogram and selective coronary angiography. The guide catheter was used intubate the left main artery and a choice PT wire was easily placed across the occluded obtuse marginal artery. Although the wire passed quickly multiple balloons were used in order to find a open the artery. A guideliner was also needed in order to support the balloon in the stents. Eventually a 2.25 x 30 mm resolute Steve stent was deployed at 24 lexus in the obtuse marginal artery extending back into the circumflex artery. This was then predilated with noncompliant 2.5 mm balloon was placed in the proximal portion of this stent which extended back into the proximal circumflex artery and deployed at 25 lexus post dilating. MARCIO 0 flow was present at the beginning of the procedure with MARCIO III flow at the end of the procedure. The wire was then pulled back and placed into the LAD. Once again multiple balloons were used including the guideline her however it was unable to get enough guide support to push through the critical calcified LAD disease. Because there is persistent elevation with anterior defect one percent lidocaine was used to anesthetize the right groin in the right femoral artery was accessed via the Seldinger technique. A 6 German sheath was placed in the right femoral artery and an EBU 3.75 guide catheter was placed in the left main artery. With the support of the guideline her I was able to eventually pressure 1.5 mm noncompliant balloon into the LAD and predilate and then continually up size. Eventually a 2.5 x 38 mm resolute [place] stent was deployed at 24 lexus in the mid LAD. A 3 mm x 38 mm resolute [place] stent was placed proximal to this and deployed at 24 lexus. An additional 2.25 x 34 mm resolute [place] stent was placed distal to yet still overlapping the 2.5 mm balloon and deployed at 20 lexus. The balloon was brought back and between the 2 stents to mesh to 25 lexus. A 3.5 x 12 mm noncompliant balloon was placed into the proximal LAD and deployed at 24 lexus to dilate the 3 mm stent and provide better proximal apposition. The first diagonal artery was lost due to jailing and lack shift and despite multiple attempts I was unable to push the wire through the jailed vessel. Excellent angiographic results were obtained in the circumflex artery and LAD. Patient had renal insufficiency with a creatinine of 1.7 and had artery received 200 cc of contrast therefore the apparatus was removed the sheath was removed good hemostasis was achieved using Perclose device and patient transferred the postop holding area in stable condition. Prior to the Perclose the groin is reprepped closure changed sheath was removed. ACT was obtained on multiple occasions during the procedure with appropriate heparin dosing. Please refer to nursing notes for specifics as well as specific balloons. ANGIOGRAPHIC RESULTS: 1. The left main artery normal 2. The left anterior descending artery has proximal 30-40% concentric stenoses with calcified 60% mid vessel stenoses and very calcified 90% mid vessel stenoses. The first diagonal artery is a medium-size bifurcating vessel which has an ostial 90% calcified stenosis. 3. The circumflex artery is nondominant yet still a large vessel which has proximal 20-30% stenoses and a mid vessel 50% concentric stenosis. The first obtuse marginal artery is proximally occluded while the second obtuse marginal artery has proximal concentric 60-70% stenosis 4. The right coronary artery is a dominant vessel and has proximal 20% calcified stenoses with mid vessel 99% stenoses and additional 70% calcified stenosis and a very distal 70% stenosis immediately proximal to the PDA and posterior lateral ventricular branch 5. The MARTE ventriculogram reveals left ventricular dilatation anterior apical hypokinesis estimated ejection fraction 45% 6. The left ventricular end-diastolic pressure 31 mm mercury IMPRESSION: 1. Critical coronary artery disease as described above 2. Successful stenting of the proximal to mid circumflex artery extending into the first obtuse marginal artery 100% occlusion reduced to 0% with 1 drug-eluting stent and multiple balloons 3. Critical disease throughout the mid LAD with successful proximal to mid distal revascularization with 3 drug-eluting stents as described above 4. Persistent critical dominant right coronary artery disease as described above 5. Regional wall motion abnormality 6. Elevated LVEDP PLAN: 1. Dual antiplatelet therapy 2. IV fluids 3. Treatment of diabetes, urgently blood sugars nearly 500 during cardiac catheterization and/STEMI 4. Standard therapy for ischemic heart disease 5. Cardiac rehabilitation 6. Avoidance of tobacco products 7. Patient be brought back to the [facility] and next week and will undergo percutaneous revascularization of the right coronary artery.
--- NOTE | 2017-04-23 17:47 | DISCHARGE SUMMARY STANDARD ---
Discharge Summary ([facility]) Date of admission: 04/17/17 Date of discharge: 04/19/17 Problem List: 1. STEMI (ST elevation myocardial infarction) 2. CHF (congestive heart failure) 3. Type 2 diabetes mellitus 4. HYPERLIPIDEMIA, UNSPECIFIED 5. HTN (hypertension) History of present illness: Mr Ye is a 61 year old male with a history of Type 2 DM, hyperlipidemia, and HTN who presented to the office of [facility] thinkng he had the flu, a cold or pneumonia. He stated that when he was couging he had pressure in the center of the chest radiating up to his head which occured with cough and was relieved after a few seconds. This was moderate in intensity. Nothing improved symptoms and it resolved on its own. He denied SOB, edema, fever, chills, N/V/D, PND or orthopnea. He stated he had been feeling well until these symptoms started a few days ago. Pt denied previous history of CP; No CAD or [place]. He was free of CP. Dr. Whelan assessed him in the office and sent him to the hospital for an EKG and labs. Outpatient EKG revealed an inferolateral STEMI . Pt was taken directly to the manager lab for C with R radial access and had stents placed. Exam on admission: 1ST Vital Signs Result Date Time Resp 18 04/17 1106 Pulse Ox 94 04/17 1334 B/P 96/70 04/17 1334 Temp 98.1 04/17 1334 Pulse 94 04/17 1334 O2 Delivery ROOM AIR 04/17 1338 Exam: General appearance: alert, active, no acute distress Eyes: anicteric Neck: no carotid bruit, supple, lymphadenopathy (absent), thyroid (normal) Cardiovascular: regular rate & rhythm Respiratory: clear to auscultation (bilat anterior and posterior) ABD: soft, no tenderness, no guarding, bowel sounds present Extremities: full range of motion, no peripheral edema, no calf tenderness Neuro: alert, oriented, speech clear Hospital Course: Patient bad cardiac cath on admission with the following impression: 1. Critical coronary artery disease 2. Successful stenting of the proximal to mid circumflex artery extending into the first obtuse marginal artery 100% occlusion reduced to 0% with 1 drug-eluting stent and multiple balloons 3. Critical disease throughout the mid LAD with successful proximal to mid distal revascularization with 3 drug-eluting stents as described above 4. Persistent critical dominant right coronary artery disease as described above 5. Regional wall motion abnormality 6. Elevated LVEDP PLAN: 1. Dual antiplatelet therapy 2. IV fluids 3. Treatment of diabetes, urgently blood sugars nearly 500 during cardiac catheterization and/STEMI 4. Standard therapy for ischemic heart disease 5. Cardiac rehabilitation 6. Avoidance of tobacco products 7. Patient be brought back to the [facility] and next week and will undergo percutaneous revascularization of the right coronary artery. Patient did well after the cardiac cath with no further CP. He was anxious to go home. He was fitted with a life vest and discharged on 04/19/17. Laboratory data this visit: Laboratory Tests 04/17/17 1429: POC Glucose 391 *H 04/17/17 1330: POC Activ Clotting Time 327 *H 04/17/17 1254: POC Activ Clotting Time >400 *H 04/17/17 1006: Sodium 135 L, Potassium 4.8, Chloride 97 L, Carbon Dioxide 24, BUN 28 H, Creatinine 1.7 H, Estimated GFR (MDRD) 41, Glucose 403 H, Calcium 9.3, Total Bilirubin 0.8, AST 47 H, ALT 49, Alkaline Phosphatase 68, Creatine Kinase 332 H, CK-MB (CK-2) Rel Index 7.3 H, CK and CKMB Interp 24.1 *H, Troponin I 20.07 H, Total Protein 7.9, Albumin 3.6, Globulin 4.3 H, Albumin/Globulin Ratio 0.8 L, D-Dimer 560 *H, WBC 13.5 H, RBC 5.46, Hgb 16.6, Hct 52.1 H, MCV 95.5, RDW 12.9, Plt Count 246, MPV 9.2, Gran % 84.5 H, Gran # 11.4 H, Lymphocytes % 6.8 L, Monocytes % 7.7, Eosinophils % 0.7, Basophils % 0.3, Lymphocytes # 0.9, Monocytes # 1.1 H, Eosinophils # 0.1, Basophils # 0.0, PUBS MCHC 31.8, MCH 30.4 04/18/17 0609: POC Glucose 187 H 04/18/17 0525: Sodium 134 L, Potassium 4.4, Chloride 101, Carbon Dioxide 26, BUN 34 H, Creatinine 1.3, Estimated Creat Clear 82, Estimated GFR (MDRD) 56, Glucose 174 H, Calcium 8.7, Total Bilirubin 0.6, Direct Bilirubin 0.19, Indirect Bilirubin 0.41, AST 71 H, ALT 41, Alkaline Phosphatase 53, Total Protein 6.6, Albumin 2.8 L, Triglycerides 59, Cholesterol 140, LDL Cholesterol 84.2, VLDL Cholesterol 11.8, HDL Cholesterol 44.0, WBC 13.5 H, RBC 4.51 L, Hgb 13.5 L, Hct 41.7 L, MCV 92.5, RDW 13.0, Plt Count 223, MPV 9.4, Gran % 79.3, Gran # 10.7 H, Lymphocytes % 10.8, Monocytes % 9.2, Eosinophils % 0.4, Basophils % 0.2, Lymphocytes # 1.5, Monocytes # 1.2 H, Eosinophils # 0.1, Basophils # 0.0, PUBS MCHC 32.2, MCH 29.8 04/17/17 2150: Creatine Kinase 462 H, CK-MB (CK-2) Rel Index 8.8 *H, CK and CKMB Interp 40.8 * H, Troponin I 25.02 H Imagin04/17/17 ECHO CONCLUSION: 1. Mildly enlarged left atrium, normal left ventricular size, mild concentric left ventricular hypertrophy, visually estimated ejection fraction 30% with multiple segmental wall motion abnormality described above. Diastolic parameters are inconclusive. 2. Mild mitral and tricuspid regurgitation. 3. Localized pericardial effusion is present as described above. 04/17/17 Cardiac cath IMPRESSION: 1. Critical coronary artery disease as described above 2. Successful stenting of the proximal to mid circumflex artery extending into the first obtuse marginal artery 100% occlusion reduced to 0% with 1 drug-eluting stent and multiple balloons 3. Critical disease throughout the mid LAD with successful proximal to mid distal revascularization with 3 drug-eluting stents as described above 4. Persistent critical dominant right coronary artery disease as described above 5. Regional wall motion abnormality 6. Elevated LVEDP PLAN: 1. Dual antiplatelet therapy 2. IV fluids 3. Treatment of diabetes, urgently blood sugars nearly 500 during cardiac catheterization and/STEMI 4. Standard therapy for ischemic heart disease 5. Cardiac rehabilitation 6. Avoidance of tobacco products 7. Patient be brought back to the [facility] and next week and will undergo percutaneous revascularization of the right coronary artery. Discharge medications: Stop taking the following medications: Pravastatin Sodium (Pravachol) 40 MG TABLET ORAL AT BEDTIME NIGHTLY Glipizide (Glipizide) 10 MG TABLET ORAL TWICE A DAY (DIABETIC DOSING) LISINOPRIL/HYDROCHLOROTHIAZIDE (Lisinopril-Hctz 20-12.5 MG Tab) 1 EACH TABLET ORAL DAILY Continue taking these medications: Canagliflozin/Metformin HCl (Invokamet XR 150-1,000 MG Tab) 1 EACH TAB.BP.24H 2 TABLET ORAL DAILY INSULIN GLARGINE,HUM.REC.ANLOG (Toujeo Solostar) 300 UNIT/1 ML INSULN.PEN 75 UNITS Subcutaneous Injection AT BEDTIME NIGHTLY Start taking the following new medications: Carvedilol (Coreg) 3.125 MG TABLET 3.125 MILLIGRAM ORAL TWICE A DAY Qty = 60 Refills = 11 Lisinopril (Lisinopril) 5 MG TABLET 5 MILLIGRAM ORAL DAILY Qty = 30 No Refills Atorvastatin Calcium (Atorvastatin) 80 MG TABLET 80 MILLIGRAM ORAL DAILY Qty = 30 Refills = 11 Ticagrelor (Brilinta) 90 MG TABLET 90 MILLIGRAM ORAL TWICE A DAY Qty = 60 Refills = 11 Aspirin (Aspirin EC) 81 MG TABLET. 81 MILLIGRAM ORAL DAILY Qty = 30 Refills = 11 Disposition: Discharged to home in stable and satidfactory condition Follow up: 2 WEEKS with: Marc Whelan MD Activity: Cont Current activity Diet: Continue same diet Discharge to: HOME Agency needed? N Also to FU in a couple of days with Dr. Fuchs for repeat cardiac cath. To continue with meds as per reconciliation sheet at 1746
== END 2017-04-19 11:10 | disposition home or self-care (01) | DRG 247 ==
LOC: RAD 10:06 → 2ND 11:32
PROVIDERS: Family Medicine; Internal Medicine
PROC: 027135Z Dilation of Coronary Artery, Two Arteries with Two Drug-eluting Intraluminal Devices, Percutaneous Approach (ICD-10-PCS; 2017-04-17)
PROC: B2111ZZ Fluoroscopy of Multiple Coronary Arteries using Low Osmolar Contrast (ICD-10-PCS; 2017-04-17)
PROC: B2151ZZ Fluoroscopy of Left Heart using Low Osmolar Contrast (ICD-10-PCS; 2017-04-17)
PROC: 4A023N7 Measurement of Cardiac Sampling and Pressure, Left Heart, Percutaneous Approach (ICD-10-PCS; principal; 2017-04-17 11:00)
DX: I21.19 ST elevation (STEMI) myocardial infarction involving other coronary artery of inferior wall (principal); I50.20 Unspecified systolic (congestive) heart failure; E11.9 Type 2 diabetes mellitus without complications; I25.119 Atherosclerotic heart disease of native coronary artery with unspecified angina pectoris; Z72.0 Tobacco use; I10 Essential (primary) hypertension
CPT/HCPCS: C1725; C1760; C1769; C1876; C1894; J1644; Q9967

== ENCOUNTER → 2017-04-23 | Day surgery (SDC) | payer OTHER ==
[~2017-04-23] MED LIST: ASPIRIN ADULT L81 M3 PO; BRILINTA90 M1 PO; COREG3.125 MG PO; GLIPIZIDE10 MG PO; HCTZ/LISINOPRIL1 TA3 PO; INVOKAMET XR 11 EAC1 PO; LIPITOR80 MG PO; LISINOPRIL5 MG PO; PRAVACHOL40 M1 PO; TOUJEO300 U/ML SC
[2017-04-23 08:02] LABS: LYMPH # 1.4 K/mm3 (0.7-4.5); LYMPH % 15.4 % (10-50)
[2017-04-23 08:05] LABS: BUN 18 mg/dL (7-18)
[2017-04-23 08:06] LABS: GFR (ESTIMATED) 85 ML/MIN (>60)
[2017-04-23 08:07] LABS: HEMOGLOBIN 14.9 g/dL (14.1-18.0)
--- NOTE | 2017-04-23 13:52 | RADIOLOGY REPORT PS360 ---
CARDIAC CATHETERIZATION DATE OF CATHETERIZATION:04/23/2017 10:42 AM PROCEDURES: 1. Drug-eluting stent deployment to the proximal mid and distal dominant right coronary artery INDICATION FOR TEST: 1. Recent ST elevation myocardial infarction 2. Coronary artery disease 3. Left ventricular dysfunction Informed consent was obtained prior to the procedure. COMPLICATIONS: None ESTIMATED BLOOD LOSS: Less than 10 ml. TECHNIQUE: One percent lidocaine was used to anesthetize the right groin. The right femoral artery was accessed via the Seldinger technique. A 6 Japanese sheath was placed in the right femoral artery and 10,000 units of heparin was administered intravenously giving an ACT out of range. Patient artery received on antiplatelet therapy today. And JL 0.75 guide catheter was used intubate the right coronary artery and a choice PT extra-support wire was placed distally. A 2.5 x 20 mm noncompliant balloon ruptured at 12 lexus in the mid right coronary artery therefore 2.5 x 27 mm noncompliant balloon was used to dilate the mid portion at 20 lexus. Following this a 2.5 x 20 mm balloon could not be advanced even though it was deployed at 20 lexsu slightly distal to the first noncompliant balloon. A guideliner was in placed and a 2.5 x 12 mm noncompliant balloon was then able to be difficult delivered distally and deployed at 20 lexus. This reduce the stenosis which allowed advancement of the guideline her and then delivery of a 3 mm x 38 mm resolute Steve stent to be deployed at 20 lexus an additional 3.5 x 30 mm resolute [place] stent was then placed proximal to this overlapping the first stent extending from the proximal right coronary artery into the mid right coronary artery and then deployed at 18 lexus. Excellent angiographic results were obtained with MARCIO-3 flow down the vessel. The closing ACT was 307 seconds. At the end of the procedure the apparatus was removed the groin was reprepped the sheath was removed good hemostasis was achieved using Perclose device patient transferred to the postop holding area in stable condition IMPRESSION: 1. Successful revascularization of the proximal mid distal dominant right coronary artery severe to critical disease reduced to 0% with 2 drug-eluting stents PLAN: 1. Continue dual antiplatelet therapy 2. LDL less than 55 3. Risk factor modification 4. Cardiac rehabilitation 5. Avoidance of tobacco products 6. Treatment of systolic heart failure 7. Repeat echocardiogram and 40 days to determine if patient is a candidate for defibrillator
[2017-04-23 14:44] VITALS: BP 142/83
== END ==
LOC: CATHLAB 07:21
PROVIDERS: Internal Medicine
PROC: B2111ZZ Fluoroscopy of Multiple Coronary Arteries using Low Osmolar Contrast (ICD-10-PCS; 2017-04-23)
PROC: B2151ZZ Fluoroscopy of Left Heart using Low Osmolar Contrast (ICD-10-PCS; 2017-04-23)
PROC: 027137Z Dilation of Coronary Artery, Two Arteries with Four or More Drug-eluting Intraluminal Devices, Percutaneous Approach (ICD-10-PCS; 2017-04-23)
PROC: 4A023N7 Measurement of Cardiac Sampling and Pressure, Left Heart, Percutaneous Approach (ICD-10-PCS; principal; 2017-04-23 12:15)
DX: I21.19 ST elevation (STEMI) myocardial infarction involving other coronary artery of inferior wall (principal); I25.119 Atherosclerotic heart disease of native coronary artery with unspecified angina pectoris; Z72.0 Tobacco use; I50.20 Unspecified systolic (congestive) heart failure; E11.9 Type 2 diabetes mellitus without complications; I10 Essential (primary) hypertension
CPT/HCPCS: C1725; C1760; C1769; C1876; C1894; J1644; Q9967